=== PATIENT | female | born 1980 | race Caucasian/White ===

== ENCOUNTER 2024-01-10 20:31 | Emergency (ER) | payer OTHER ==
[2024-01-10] MEDS ORDERED: KETOROLAC 30 MG/ML INJ ONE (21:52)
[2024-01-10] MEDS ORDERED: ONDANSETRON 4 MG/2 ML VIAL ONE (21:52)
[2024-01-10] MEDS ORDERED: HYDROCODONE/APAP 5/325 MG TAB ONE (21:53)
[2024-01-10] MEDS ORDERED: DIAZEPAM 5 MG TABLET ONE (21:53)
[2024-01-10 22:11] LABS: Specific Gravity 1.022 (1.005-1.030)
[2024-01-10 22:14] LABS: Absolute Eosinophils 0.3 K/uL (0-0.5); Absolute Monocytes 0.7 K/uL (0.1-1.3); Absolute Neutrophil 4.5 K/uL (1.8-8.0); Basophils % 0.5 % (0-1.3); Hematocrit 42.8 % (36.0-45.0); Hemoglobin 14.4 g/dL (12.0-15.0); Lymphocytes % 35.1 % (15.3-44.8); MCH 32.3 pg (27.0-35.0); MCHC 33.6 g/dL (32.0-36.0); MPV 9.1 fL (7.6-11.3); Monocytes % 8.3 % (3.3-12.3); Neutrophils % 53.1 % (41.7-73.7); Nucleated Red Blood Cells % 0.1 % (0-0); Platelets 277 thou/uL (152-406); RBC Red Blood Cell Count 4.46 M/uL (3.86-4.86); Specific Gravity 1.022 (1.005-1.030); Urine Bacteria <20 /HPF (<20); Urine Bilirubin NEGATIVE (Negative); Urine Blood Negative (Negative); Urine Clarity Extremely Turbid (Clear); Urine Color Light-Orange (Yellow); Urine Culture Reflex Order REFLEXED; Urine Glucose NEGATIVE (Negative); Urine Ketones NEGATIVE (Negative); Urine Microscopic Reflex YN ORDER UMIC; Urine Mucus Slight /HPF (None Seen); Urine Nitrite 2+ (Negative); Urine Protein TRACE (Negative); Urine Urobilinogen Normal (Normal); Urine pH 6.5 (5.0-7.0)
[2024-01-10 22:24] LABS: Albumin 3.9 g/dL (3.4-5.0); Albumin/Globulin Ratio 0.9 (1.1-1.8); Anion Gap 5.3 mEq/L (5.0-15.0); Bilirubin Total 0.4 mg/dL (0.2-1.0); Globulin 4.2 g/dL (2.3-3.5); Potassium 4.3 mEq/L (3.5-5.1); Protein, Total 8.1 g/dL (6.4-8.2)
--- NOTE | 2024-01-11 00:21 | ER ---
Nurse's Notes [facility] Name: Kristi Linder Age: 43 yrs Sex: Female : 1980 Arrival Date: 01/10/2024 Time: 20:31 Bed 18 Private MD: Diagnosis: UTI/ Urinary tract infection, site not specified;Back pain Presentation: 01/09 20:56 Chief complaint: Patient states: Back pain for 2-3 days, getting worse. No known nj1 injury. Had tylenol earlier today with no relief. Coronavirus screen: Vaccine status: Patient reports receiving the 2nd dose of the covid vaccine. Ebola Screen: Patient denies travel to an Ebola-affected area in the 21 days before illness onset. Initial Sepsis Screen: Does the patient meet any 2 criteria? No. Patient's initial sepsis screen is negative. Does the patient have a suspected source of infection? No. Patient's initial sepsis screen is negative. Risk Assessment: Do you want to hurt yourself or someone else? Patient reports no desire to harm self or others. Onset of symptoms was January 2024. 20:56 Method Of Arrival: Wheelchair nj1 20:56 Acuity: THOMAS 3 nj1 Triage Assessment: 20:59 General: Appears in no apparent distress. uncomfortable, Behavior is calm, cooperative, nj1 appropriate for age. Pain: Complains of pain in back Pain currently is 9 out of 10 on a pain scale. FRUIT HARVESTER: 22:00 Not cp4 Historical: - Allergies: 20:58 Mycins; nj1 - PMHx: 20:58 None; nj1 - PSHx: 20:58 Ectopic rupture surgery; nj1 - Immunization history:: Client reports receiving the 2nd dose of the Covid vaccine. - Infectious Disease History:: Denies. - Social history:: Smoking status: Patient reports the use of cigarette tobacco products, smokes one pack cigarettes per day. Screenin:58 [facility] ED Fall Risk Assessment (Adult) History of falling in the last 3 months, cp4 including since admission No falls in past 3 months (0 pts) Confusion or Disorientation No (0 pts) Intoxicated or Sedated No (0 pts) Impaired Gait No (0 pts) Mobility Assist Device Used No (0 pt) Altered Elimination No (0 pt) Score/Fall Risk Level 0 - 2 = Low Risk Oriented to surroundings, Maintained a safe environment, Assessed \T\ reinforced patient's understanding of fall precautions, Hourly rounding (assess needs \T\ fall precautionary measures) done. Abuse screen: Denies threats or abuse. Nutritional screening: No deficits noted. Tuberculosis screening: No symptoms or risk factors identified. Assessment: 21:58 General: Appears distressed, uncomfortable, Behavior is calm, cooperative, appropriate cp4 for age. Pain: Complains of pain in back Pain currently is 10 out of 10 on a pain scale. Neuro: Level of Consciousness is awake, alert, obeys commands, Oriented to person, place, time, situation. Cardiovascular: No deficits noted. Respiratory: No deficits noted. GI: No deficits noted. : Denies little urine output the last several days. EENT: No deficits noted. Derm: No deficits noted. Musculoskeletal: No deficits noted. Vital Signs: 20:56 BP 156 / 90; Pulse 89; Resp 18; Temp 98.3(O); Pulse Ox 100% ; Weight 72.57 kg; Height 5 [facility] ft. 2 in. ; Pain 9/10; 22:00 BP 135 / 93; Pulse 78; Resp 16; Pulse Ox 100% ; cp4 23:00 BP 122 / 80; Pulse 70; Resp 16; Pulse Ox 100% ; cp4 01/10 00:00 BP 118 / 82; Pulse 81; Resp 16; Temp 97.3; Pulse Ox 100% ; cp4 01/09 20:56 Body Mass Index 29.26 (72.57 kg, 157.48 cm) [facility] 01/09 20:56 Pain Scale: Adult [facility] ED Course: 01/09 20:34 Patient arrived in ED. mr 20:58 Triage completed. nj1 20:59 Arm band placed on right wrist. nj1 21:16 Katarina Lee is Primary Nurse. cp4 21:21 Nicki Godinez FNP-C is [facility]. kb 21:21 Trace Williamson MD is Attending Physician. kb 21:49 Inserted saline lock: 22 gauge in right antecubital area, using aseptic technique. cp4 Blood collected. Flushed with 10 mL NS. 21:58 Bed in low position. Call light in reach. Side rails up X 1. cp4 21:58 No provider procedures requiring assistance completed. cp4 22:35 CT Stone Protocol In Process Unspecified. EDMS 01/10 00:36 Provided Education on: urinary tract infection, back pain. cp4 00:36 intact, bleeding controlled, No redness/swelling at site. Pressure dressing applied. cp4 Administered Medications: 01/09 21:57 Drug: TORadol - Ketorolac IVP 15 mg IVP once Route: IVP; Site: right antecubital; cp4 01/10 00:38 Follow up: Response: No adverse reaction; Pain is decreased cp4 01/09 21:57 Drug: Ondansetron IVP 4 mg IVP once; over 2 minutes Route: IVP; Site: right antecubital;cp4 01/10 00:38 Follow up: Response: No adverse reaction cp4 01/09 21:57 Drug: HYDROcodone-acetaminophen PO 5 mg-325 mg 1 tabs PO once Route: PO; cp4 01/10 00:38 Follow up: Response: No adverse reaction; Pain is decreased cp4 01/09 21:57 Drug: Diazepam PO 5 mg PO once Route: PO; cp4 01/10 00:38 Follow up: Response: No adverse reaction; Pain is decreased cp4 Medication: 01/09 21:58 VIS not applicable for this client. cp4 Outcome: 01/10 00:20 Discharge ordered by . kb 00:36 Discharged to home ambulatory, cp4 00:36 Condition: stable 00:36 Discharge instructions given to patient, family, Instructed on discharge instructions, follow up and referral plans. medication usage, Demonstrated understanding of instructions, follow-up care, medications, Prescriptions given X 3, 00:37 Patient left the ED. cp4 Signatures: Dispatcher [employer] EDIL Nicki Godinez, WIRE BOUND BOX MACHINE OPERATOR-C WIRE BOUND BOX MACHINE OPERATOR-CkLluvia Fair, [facility] Reg mr Margaret Arana, RN RN nj1 Katarina eLe cp4
--- NOTE | 2024-01-11 00:21 | EDPHYS ---
Physician Documentation [facility] Name: Kristi Linder Age: 43 yrs Sex: Female : 1980 Arrival Date: 01/10/2024 Time: 20:31 Bed 18 Private MD: ED Physician Trace Williamson HPI: 01/10 00:19 This 43 yrs old Female presents to ER via Wheelchair with complaints of Back Pain. kb 00:19 Pt is a 43 year old female who presents for back pain (mostly right flank area) that kb started 3 days ago. Reports spasming pain. Denies injury, trauma, urinary symptoms, n/v/d, fever. . SHIRT SEWER: 01/09 22:00 Not cp4 Historical: - Allergies: 20:58 Mycins; nj1 - PMHx: 20:58 None; nj1 - PSHx: 20:58 Ectopic rupture surgery; nj1 - Immunization history:: Client reports receiving the 2nd dose of the Covid vaccine. - Infectious Disease History:: Denies. - Social history:: Smoking status: Patient reports the use of cigarette tobacco products, smokes one pack cigarettes per day. ROS: 01/10 00:11 Constitutional: As per HPI kb Exam: 00:11 Constitutional: This is a well developed, well nourished patient who is awake, alert, kb and in no acute distress. Head/Face: Normocephalic, atraumatic. ENT: Moist Mucous membranes Cardiovascular: Regular rate Respiratory: Respirations even and unlabored. No increased work of breathing. Talking in full sentences Skin: Warm, dry with normal turgor. Normal color. MS/ Extremity: Pulses equal, no cyanosis. Neurovascular intact. Full, normal range of motion. Neuro: Awake and alert, GCS 15, oriented to person, place, time, and situation. Moves all extremities. Normal gait. 00:11 Abdomen/GI: Inspection: abdomen appears normal, Bowel sounds: normal, Palpation: soft, in all quadrants, mild abdominal tenderness, in the right upper quadrant, 00:11 Back: pain, that is moderate, of the mid back area, ROM is normal, Vital Signs: 01/09 20:56 BP 156 / 90; Pulse 89; Resp 18; Temp 98.3(O); Pulse Ox 100% ; Weight 72.57 kg; Height 5 nj1 ft. 2 in. ; Pain 02/09; 22:00 BP 135 / 93; Pulse 78; Resp 16; Pulse Ox 100% ; cp4 23:00 BP 122 / 80; Pulse 70; Resp 16; Pulse Ox 100% ; cp4 01/10 00:00 BP 118 / 82; Pulse 81; Resp 16; Temp 97.3; Pulse Ox 100% ; cp4 01/09 20:56 Body Mass Index 29.26 (72.57 kg, 157.48 cm) [facility] 01/09 20:56 Pain Scale: Adult nj MDM: 01/09 21:21 Patient medically screened. kb 01/10 00:12 Differential diagnosis: strain, sciatica, Herniated disc UTI, cholelithiasis, kidney kb stone. Data reviewed: vital signs, nurses notes. Test considered but Not performed: Ultrasound US considered but pt has no lower abd tenderness/pain. Pt educated on CT findings and need for follow up with CAPACITY ANALYST for US to further evaluate cystic structure. Verbal understanding received. . Historians other than the Patient: Spouse/Significant Other: . Counseling: I had a detailed discussion with the patient and/or guardian regarding the historical points, exam findings, and any diagnostic results supporting the discharge/admit diagnosis, lab results, radiology results, the need for outpatient follow up, a family practitioner, an OB/Gyne specialist, to return to the emergency department if symptoms worsen or persist or if there are any questions or concerns that arise at home. Response to treatment: the patient's symptoms have markedly improved after treatment. 01/09 21:37 Order name: CBC with Diff; Complete Time: 22:35 kb 01/09 21:37 Order name: CMP; Complete Time: 22:35 kb 01/09 21:37 Order name: Lipase; Complete Time: 22:35 kb 01/09 21:37 Order name: Test, Urine; Complete Time: 22:35 kb 01/09 21:37 Order name: Urinalysis w/ reflexes; Complete Time: 22:35 kb 01/09 22:20 Order name: Urine Culture EDMS 01/09 21:37 Order name: CT Stone Protocol kb 01/09 21:37 Order name: IV Saline Lock; Complete Time: 21:50 kb 01/09 21:37 Order name: Labs collected and sent; Complete Time: 21:50 kb Administered Medications: 01/09 21:57 Drug: TORadol - Ketorolac IVP 15 mg IVP once Route: IVP; Site: right antecubital; cp4 01/10 00:38 Follow up: Response: No adverse reaction; Pain is decreased cp4 01/09 21:57 Drug: Ondansetron IVP 4 mg IVP once; over 2 minutes Route: IVP; Site: right antecubital;cp4 01/10 00:38 Follow up: Response: No adverse reaction cp4 01/09 21:57 Drug: HYDROcodone-acetaminophen PO 5 mg-325 mg 1 tabs PO once Route: PO; cp4 01/10 00:38 Follow up: Response: No adverse reaction; Pain is decreased cp4 01/09 21:57 Drug: Diazepam PO 5 mg PO once Route: PO; cp4 01/10 00:38 Follow up: Response: No adverse reaction; Pain is decreased cp4 Disposition Summary: 01/11/24 00:20 Discharge Ordered Notes: Location: Home kb Condition: Stable kb Diagnosis - UTI/ Urinary tract infection, site not specified kb - Back pain kb Followup: kb - With: Emergency Department - When: As needed - Reason: Worsening of condition Followup: kb - With: Private Physician - When: 2 - 3 days - Reason: Recheck today's complaints, Continuance of care, Re-evaluation by your physician Discharge Instructions: - Discharge Summary Sheet kb - Acute Back Pain, Adult kb - Musculoskeletal Pain kb - Urinary Tract Infection, Adult, [id number] kb Forms: - Medication Reconciliation Form kb - Antibiotic Education kb - Prescription Opioid Use kb - Patient Portal Instructions kb - Leadership Thank You Letter Prescriptions: - Augmentin 875-125 mg Oral Tablet - take 1 tablet ORAL route every 12 hours for 10 days; 20 tablet; Refills: 0, kb Product Selection Permitted - Diclofenac Sodium 75 mg Oral tablet, delayed release (enteric coated) - take 1 tablet ORAL route 2 times per day As needed; 30 tablet; Refills: 0, kb Product Selection Permitted - orphenadrine citrate 100 mg Oral Tablet Sustained Release - take 1 tablet ORAL route 2 times per day As needed; 20 tablet; Refills: 0, kb Product Selection Permitted Signatures: Dispatcher [employer] Nicki Bender, RAMOS-C FEATHER CURLING MACHINE OPERATOR-Margaret Saldivar RN RN nj Katarina Lee cp4
[2024-01-11 01:52] VITALS: O2SAT 100
[2024-01-11 01:56] VITALS: BP 118/82; TEMP 97.3
--- NOTE | 2024-01-12 10:22 | RAD REPORT ---
EXAM DESCRIPTION: CT - Stone Protocol - 01/10/2024 10:33 pm CLINICAL HISTORY: 43-year-old female with abdominal and flank pain. COMPARISON: None. TECHNIQUE: Volumetric CT of the abdomen and pelvis acquired without the intravenous administration o f contrast, which limits evaluation. Axial, coronal and sagittal images are provided. The study was p erformed using dose reduction techniques including automated exposure control and/or adjustment of th e MA and/or KV according to patient size, and/or iterative reconstruction techniques. FINDINGS: Decal Maker/Lines, tubes and hardware: None. Lower thorax: Mild bibasilar subsegmental atelectasis and/or scarring. No consolidation or pleural ef fusion . Liver: No hepatic lesion. Biliary tree: No intra- or extrahepatic bile duct dilation. Gallbladder: No calcified cholelithiasis or pericholecystic inflammation Pancreas: No pancreatic lesion.. Spleen: No splenic lesion. Adrenals: No adrenal gland lesion. Kidneys and ureters: No renal lesion, nephrolithiasis, or hydronephrosis. Bladder/reproductive organs: Nonspecific 7.9 x 6.7 x 6.1 cm (AP, CC, transverse) left ovarian cystic lesion with superior subcentimeter calcification. Uterus in situ. Gastrointestinal tract: Lower esophagus/stomach: Stomach and small bowel are partially decompressed Colon: Mild colonic diverticulosis, with mild to moderate retained colonic stool. No diverticulitis. Appendix: Normal caliber appendix. Peritoneum, mesentery and retroperitoneum: No free air, ascites or loculated fluid. Lymph nodes: No pathologic adenopathy based on size criteria. Vasculature: Aorta and branches: Atherosclerotic mild vascular calcifications. Aorta has a normal diameter. IVC and veins: Subcentimeter left hemipelvic calcified phlebolith. Bones: Degenerative changes, including mild multilevel spondylosis. Scattered right innominate bones and right femoral head sclerotic foci, likely bone islands, largest measures 13 mm within the superio r right acetabulum. Soft tissues: Tiny umbilical hernia containing adipose tissue. IMPRESSION: 1. Indeterminate 7.9 cm left ovarian/adnexal cystic lesion, incompletely characterized on the current study. Differential diagnosis would include cyst versus cystic neoplasm including cys tadenoma, and other etiologies. Correlation with pelvic sonography suggested for initial characteriza tion. 2. No urolithiasis or obstructive uropathy. Electronically signed by: Mohan Aguirre MD 01/10/2024 11:19 PM CDT RP Due to temporary technical issues with the PACS/Fluency reporting system, reports are being signed by the in house radiologist without review as a courtesy to ensure prompt reporting. The interpreting r adiologist is fully responsible for the content of the report.
== END 2024-01-11 00:37 | disposition home or self-care (01) ==
LOC: ER 20:31
DX: N39.0 Urinary tract infection, site not specified (principal); F17.210 Nicotine dependence, cigarettes, uncomplicated
CPT/HCPCS: 87088; 85025; 81001; 87086; 36415; 81025; 83690; 80053; 76377; 74176; 96375; 96374; 99284; J2405